=== PATIENT | male | born 1995 | race Two or more races ===

== ENCOUNTER 2023-04-06 22:57 | Emergency (ER) | payer MEDICAID ==
[~2023-04-06] VITALS: Ht 188 cm; Wt 88.6 kg
[2023-04-06 23:11] VITALS: BP 121/62; PULSE 96; RESP 17; TEMP 98.5
[2023-04-06] MEDS ORDERED: ONDANSETRON 4MG ODT PO STA (23:14)
[2023-04-06] MEDS ORDERED: HALOPERIDOL LACTATE 5MG/ML VIAL IM ONE (23:45)
[2023-04-06] MEDS ORDERED: SODIUM CHLORIDE 0.9% 1,000 ML IV ONE (23:45)
[2023-04-06 23:58] LABS: BASOPHILS % 0.5 % (0.0-2.0); EOSINOPHILS % 2.6 % (0.0-5.0); HEMATOCRIT. 43.3 % (42.0-52.0); HEMOGLOBIN. 14.8 g/dL (14.0-18.0); LYMPHOCYTES % 34.6 % (20.0-50.0); MEAN CORPUSCULAR HEMOGLOBIN 30.3 pg (28.0-32.0); MEAN CORPUSCULAR HGB CONC 34.1 g/dL (31.0-37.0); MEAN CORPUSCULAR VOLUME 88.9 fL (80.0-94.0); MEAN PLATELET VOLUME 7.8 fl (7.4-10.4); MONOCYTES % 8.3 % (2.0-8.0); PLATELET 447 x1000/uL (130-400); RED BLOOD CELL COUNT 4.88 mill/uL (4.7-6.1); RED CELL DISTRIBUTION WIDTH 13.6 % (11.6-14.6)
[2023-04-07 00:08] LABS: ALANINE AMINOTRANSFERASE 45 IU/L (10-49); ALBUMIN 4.3 g/dL (3.2-4.8); ASPARTATE AMINOTRANSFERASE 27 IU/L (<34); BILIRUBIN TOTAL 0.3 mg/dL (0.1-1.0); CALCIUM 9.1 mg/dL (8.7-10.4); CARBON DIOXIDE 26 mEq/L (21-32); CHLORIDE 103 mEq/L (98-107); CREATININE 0.9 mg/dL (0.6-1.3); GLUCOSE 140 mg/dL (70-105); POTASSIUM 3.5 mEq/L (3.5-5.1); PROTEIN TOTAL 7.4 g/dL (6.0-8.3); SODIUM 140 mEq/L (136-145); TROPONIN I HIGH SENSITIVITY 11 ng/L (3.0-53); UREA NITROGEN BLOOD 16 mg/dL (9-23)
[2023-04-07] MEDS ORDERED: NIRM1TAB PO (02:06)
[2023-04-07] MEDS ORDERED: ONDA4TAB11 PO (02:06)
== END 2023-04-07 03:01 | disposition home or self-care (01) ==
LOC: ER 23:15
DX: U07.1 COVID-19 (principal); F12.929 Cannabis use, unspecified with intoxication, unspecified
CPT/HCPCS: 80053; 83690; 85025; 85379; 84484; 36415; 71045; 93005; 99285; 87426; Q0162; J7030; C9803; Z7610; J1630